=== PATIENT | male | born 1965 | race Caucasian/White ===

== ENCOUNTER 2022-03-25 08:16 | Day surgery (SDC) | payer BC ==
[~2022-03-25 08:16] MED LIST: Lactated Ringers 1,000 ML IV SCH; Lidocaine 1%/Sod Bicarbonate in NS 8.4% 1 ML Syringe IDERM PRN; Sodium Chloride 0.9% 10 ML Syringe FLUSH PRN; Sodium Chloride 0.9% 10 ML Syringe FLUSH SCH
[2022-03-25] MEDS ORDERED: Albuterol 0.083% 2.5 MG/3 ML Neb Soln NEB ONE (10:12)
[2022-03-25] MEDS ORDERED: Propofol 200 MG/20 ML SDV ONE ×3 (10:18→10:57)
[2022-03-25] MEDS ORDERED: Lidocaine 1% 4 ML ONE (10:18)
[2022-03-25] MEDS ORDERED: Midazolam 1 MG/ML 2 ML SDV ONE (10:19)
[2022-03-25] MEDS ORDERED: fentaNYL 100 MCG/2 ML SDV ONE (10:19)
[2022-03-25] MEDS ORDERED: Lactated Ringers 1,000 ML ONE (10:38)
== END 2022-03-25 11:49 | disposition home or self-care (01) ==
LOC: JD.SDS 08:16
PROVIDERS: ATTEND Surgery
DX: Z12.11 Encounter for screening for malignant neoplasm of colon (principal); Z15.09 Genetic susceptibility to other malignant neoplasm; K29.70 Gastritis, unspecified, without bleeding; K64.1 Second degree hemorrhoids; K31.89 Other diseases of stomach and duodenum; I78.1 Nevus, non-neoplastic; Z90.49 Acquired absence of other specified parts of digestive tract; F17.210 Nicotine dependence, cigarettes, uncomplicated; Z86.010 Personal history of colon polyps; Z98.890 Other specified postprocedural states; Z88.0 Allergy status to penicillin; Z88.8 Allergy status to other drugs, medicaments and biological substances; Z88.2 Allergy status to sulfonamides
CPT/HCPCS: 43239; 45378; J2250; J2704; J3010; J7120; 00813